=== PATIENT | male | born 1995 | race Caucasian/White ===

== ENCOUNTER 2020-12-04 13:30 | Emergency (ER) | payer OTHER | END 2020-12-04 15:45 | disposition home or self-care (01) | LOC: FER 13:30 | DX: S56.912A Strain of unspecified muscles, fascia and tendons at forearm level, left arm, initial encounter (principal); S46.812A Strain of other muscles, fascia and tendons at shoulder and upper arm level, left arm, initial encounter; V43.92XA Unspecified car occupant injured in collision with other type car in traffic accident, initial encounter; Y92.410 Unspecified street and highway as the place of occurrence of the external cause | CPT/HCPCS: 73080; 73090 ==

== ENCOUNTER 2021-03-18 16:27 | Emergency (ER) | payer OTHER ==
[2021-03-18 19:35] LABS: BASOPHIL 0.6 % (0-2); EOSINOPHIL 1.5 % (0-5); HCT 47.1 % (42.0-52.0); HGB 15.3 g/dl (13.2-18.0); LYMPHOCYTE 30.7 % (15-48); MCH 29.4 pg (25.0-31.0); MCHC 32.5 g/dL (32.0-36.0); MCV 90.4 fL (78.0-100.0); MONOCYTE 9.3 % (0-12); MPV 11.7 fL (6.0-9.5); NEUTROPHIL 57.5 % (41-80); NRBC 0; PLT 269 K/uL (150-400); RBC 5.21 M/uL (4.70-6.00); RDW 12.7 % (11.5-14.0); WBC 9.3 K/uL (4.0-10.5)
[2021-03-18 19:47] LABS: BILIRUBIN - TOTAL 0.4 mg/dL (0.2-1.0); BUN/CREAT RATIO (CALC) 13.6 RATIO; CREATININE 0.88 mg/dL (0.67-1.17); GLOBULIN (CALCULATION) 2.9 g/dL; TOTAL PROTEIN 6.9 g/dL (6.4-8.2)
[2021-03-18 19:53] LABS: BILIRUBIN 1+ mg/dL (NEGATIVE); BLOOD NEGATIVE Ery/uL (NEGATIVE); CLARITY CLEAR (CLEAR); COLOR YELLOW (YELLOW); GLUCOSE (U) NORMAL (NORMAL); LEUKOCYTES NEGATIVE Leu/uL (NEGATIVE); NITRITE NEGATIVE (NEGATIVE); PROTEIN TRACE (LOW) mg/dL (NEGATIVE); SPECIFIC GRAVITY 1.025 (1.001-1.030)
[2021-03-18 19:57] LABS: AMPHETAMINES NEGATIVE (NEGATIVE); BARBITURATES NEGATIVE (NEGATIVE); ECSTASY (MDMA) NEGATIVE (NEGATIVE); MARIJUANA (THC) NEGATIVE (NEGATIVE); METHADONE NEGATIVE (NEGATIVE); OPIATES NEGATIVE (NEGATIVE); OXYCODONE NEGATIVE (NEGATIVE)
[2021-03-18] MEDS ORDERED: ZOFRAN4 M1 PO (20:44)
== END 2021-03-18 21:05 | disposition home or self-care (01) ==
LOC: FER 16:27
PROVIDERS: Nurse Practitioner Family
DX: R10.13 Epigastric pain (principal); R11.2 Nausea with vomiting, unspecified
CPT/HCPCS: 36415; 80053; 80305; 81003; 82150; 83690; 85025; 99284; J7030

== ENCOUNTER 2021-05-04 10:24 | Emergency (ER) | payer OTHER ==
[~2021-05-04 10:24] MED LIST: ZOFRAN4 M1 PO
[2021-05-04 12:08] LABS: BASOPHIL 0.4 % (0-2); BILIRUBIN NEGATIVE (NEGATIVE); BLOOD NEGATIVE Ery/uL (NEGATIVE); CLARITY CLEAR (CLEAR); COLOR YELLOW (YELLOW); EOSINOPHIL 1.6 % (0-5); GLUCOSE (U) NORMAL (NORMAL); HCT 48.3 % (42.0-52.0); HGB 15.7 g/dl (13.2-18.0); LEUKOCYTES NEGATIVE Leu/uL (NEGATIVE); LYMPHOCYTE 17.6 % (15-48); MCH 29.6 pg (25.0-31.0); MCHC 32.5 g/dL (32.0-36.0); MCV 91.1 fL (78.0-100.0); MONOCYTE 10.1 % (0-12); MPV 11.8 fL (6.0-9.5); NEUTROPHIL 69.9 % (41-80); NITRITE NEGATIVE (NEGATIVE); NRBC 0; PLT 271 K/uL (150-400); PROTEIN NEGATIVE (NEGATIVE); RDW 12.9 % (11.5-14.0); SPECIFIC GRAVITY 1.025 (1.001-1.030); WBC 9.7 K/uL (4.0-10.5); pH 6.5 (5.0-9.0)
[2021-05-04 12:16] LABS: BILIRUBIN - TOTAL 0.5 mg/dL (0.2-1.0); BUN/CREAT RATIO (CALC) 14.7 RATIO; CREATININE 0.95 mg/dL (0.67-1.17); GLOBULIN (CALCULATION) 3.3 g/dL; POTASSIUM 4.6 mmol/L (3.5-5.1); TOTAL PROTEIN 7.3 g/dL (6.4-8.2)
[2021-05-04 14:11] LABS: CORONAVIRUS 2019 SARS-COV-2 NEGATIVE (NEGATIVE); INFLUENZA A NAA NEGATIVE (NEGATIVE)
[2021-05-04] MEDS ORDERED: BENTYL10 MG PO (14:27)
== END 2021-05-04 14:51 | disposition home or self-care (01) ==
LOC: FER 10:24
PROVIDERS: Emergency Medicine; Nurse Practitioner Family
DX: R19.7 Diarrhea, unspecified (principal); Z20.822 Contact with and (suspected) exposure to COVID-19
CPT/HCPCS: 36415; 74022; 80053; 81003; 82150; 83690; 85025; U0002